=== PATIENT | male | born 1985 | race Caucasian/White ===

== ENCOUNTER 2017-03-25 08:28 | Emergency (ER) | payer OTHER ==
[~2017-03-25] VITALS: Ht 177.8 cm; Wt 74.8 kg
[~2017-03-25 08:28] MED LIST: ALBU.083IS IH; ALBU90I INH; AMOCLA500 PO; AMOX1XR PO; AMOX500 PO; ANTOXYBENA BOTHEARS; ASPI325 PO; Amoxicillin500 MG PO; BUTASPCAF PO; Benadryl 50 mg50 MG PO; CEPH500 PO; CLOT1TC TOP; CYCL10 PO; Cleocin HCl300 MG PO; DIPH50 PO; FLUT.05NI; GUAI600T33 PO; HYDACE5 PO; HYDACE5325 PO; HYDACE7.5 PO; IBUP200 PO; IBUP400 PO; IBUP600 PO; IBUP800 PO; KETO10 PO; MELO7.5 PO; METPRE4DP PO; NAPR500 PO; NAPR550 PO; NEOCOLOTSU BOTHEARS; OMEP10ER PO; OMEP40CA12 PO; ONDA4ODT MM; OXYACE5T PO; PRED10 PO; PRED20 PO; PROC10 PO; PROM25 PO; PSEU120ER PO; Pepcid40 MG PO; RANI150 PO; RXCYCL10 PO; RXHYDACE PO; RXTRAM50 PO; SERT25; TRAACE PO; TRAM50 PO; TRIA80TC TOP
[2017-03-25] MEDS ORDERED: TOPI100 PO (08:47)
[2017-03-25] MEDS ORDERED: Mupirocin22 GM TOP (09:14)
[2017-03-25] MEDS ORDERED: Vibramycin100 MG PO (09:14)
== END 2017-03-25 09:38 | disposition home or self-care (01) ==
LOC: ER 08:28
DX: A49.02 Methicillin resistant Staphylococcus aureus infection, unspecified site (principal); Z91.030 Bee allergy status; Z88.2 Allergy status to sulfonamides; Z88.8 Allergy status to other drugs, medicaments and biological substances; Z79.899 Other long term (current) drug therapy; G43.909 Migraine, unspecified, not intractable, without status migrainosus; G40.909 Epilepsy, unspecified, not intractable, without status epilepticus; F17.200 Nicotine dependence, unspecified, uncomplicated
CPT/HCPCS: 99283

== ENCOUNTER 2017-04-12 22:26 | Emergency (ER) | payer OTHER ==
[~2017-04-12] VITALS: Ht 177.8 cm; Wt 68.0 kg
[~2017-04-12 22:26] MED LIST changes: +Mupirocin22 GM TOP; +TOPI100 PO; +Vibramycin100 MG PO
[2017-04-12] MEDS ORDERED: PYRA250T PO (23:04)
== END 2017-04-12 23:09 | disposition home or self-care (01) ==
LOC: ER 22:26
DX: R21 Rash and other nonspecific skin eruption (principal); Z88.2 Allergy status to sulfonamides; Z91.030 Bee allergy status; Z88.8 Allergy status to other drugs, medicaments and biological substances; Z79.899 Other long term (current) drug therapy; G43.909 Migraine, unspecified, not intractable, without status migrainosus; F17.210 Nicotine dependence, cigarettes, uncomplicated
CPT/HCPCS: 99282

== ENCOUNTER 2017-06-17 01:10 | Emergency (ER) | payer OTHER ==
[~2017-06-17] VITALS: Ht 177.8 cm; Wt 81.7 kg
[~2017-06-17 01:10] MED LIST changes: +PYRA250T PO
== END 2017-06-17 02:54 | disposition home or self-care (01) ==
LOC: ER 01:10
DX: S60.444A External constriction of right ring finger, initial encounter (principal); Z88.2 Allergy status to sulfonamides; Z88.5 Allergy status to narcotic agent; Z91.030 Bee allergy status; Z88.1 Allergy status to other antibiotic agents; M54.9 Dorsalgia, unspecified; G89.29 Other chronic pain; Z98.890 Other specified postprocedural states; F17.210 Nicotine dependence, cigarettes, uncomplicated; W49.04XA Ring or other jewelry causing external constriction, initial encounter
CPT/HCPCS: 99282